=== PATIENT | male | born 1980 | race Caucasian/White ===

== ENCOUNTER 2018-06-12 11:43 | Emergency (ER) | payer MEDICARE, MEDICAID ==
[~2018-06-12] VITALS: Ht 175.3 cm; Wt 70.6 kg
[~2018-06-12 11:43] MED LIST: AMIT10TA; BACL-19 PO; BACL20TA; DEXT10TA7; DIAZ10TA PO; GABA300C; HALO5AMP3; HYDR-3307 PO; PROP80CA3 PO; THIO100T; THORAZINE; TOPI100T24; propanolol PO
[2018-06-12 11:49] VITALS: BP 129/81
== END 2018-06-12 13:09 | disposition home or self-care (01) ==
LOC: ED 12:21
DX: M79.651 Pain in right thigh (principal); M79.652 Pain in left thigh; G89.29 Other chronic pain; I10 Essential (primary) hypertension
CPT/HCPCS: 99281

== ENCOUNTER 2018-06-24 04:28 | Emergency (ER) | payer MEDICARE, MEDICAID ==
[~2018-06-24] VITALS: Ht 177.8 cm; Wt 66.0 kg
--- NOTE | 2018-06-24 04:39 | NUR ---
leyla. report from [facility]. pt c/o abd pain with n/v for 5 days. pt was seen at [facility] 2 times for the same reasons. pt states no improvement. pt's aox4. resps even and unlabored. bp/spo2 monitors in place. call light within reach.
--- NOTE | 2018-06-24 04:58 | NUR ---
pt amb to br and back to room with steady gait. ua sent.
--- NOTE | 2018-06-24 04:58 | NUR ---
pt in xray now.
[2018-06-24 05:29] LABS: MICROSCOPIC NOT IND
[2018-06-24 05:29] LABS: BASOPHILS # (AUTO) 0.07 x10^3/uL (0-0.1); BASOPHILS % (AUTO) 1 % (0-1); EOSINOPHILS % (AUTO) 2 % (1-7); LYMPHOCYTES % (AUTO) 27 % (22-44); MD NO; MEAN CORPUSCULAR HGB CONC 33.5 g/dL (33.2-36.2); MEAN CORPUSCULAR VOLUME 95.5 fL (81-97); MEAN PLATELET VOLUME 8.7 fL (7.4-10.4); MONOCYTES # (AUTO) 0.92 x10^3/uL (0.2-0.8); MONOCYTES % (AUTO) 8 % (2-9); NEUTROPHILS # (AUTO) 7.55 x10^3/uL (1.8-6.8); NEUTROPHILS % (AUTO) 63 % (42-75); PLATELET COUNT 329 x10^3/uL (130-400); RED BLOOD COUNT 5.47 x10^6/uL (4.38-5.82); RED CELL DISTRIBUTION WIDTH 13.9 % (9.4-14.8)
[2018-06-24 05:30] LABS: CHLORIDE 106 mmol/L (98-107)
[2018-06-24 05:31] LABS: CULTURE INDICATED? NO
[2018-06-24 05:37] LABS: ALANINE AMINOTRANSFERASE 57 U/L (12-78); ALBUMIN 4.6 g/dL (3.4-5.0); ALKALINE PHOSPHATASE 78 U/L (45-117); ANION GAP 5 mmol/L (5-15); BILIRUBIN,TOTAL 0.4 mg/dL (0.2-1.0); CALCIUM 9.4 mg/dL (8.5-10.1); CREATININE 1.19 mg/dL (0.7-1.3)
[2018-06-24] MEDS ORDERED: MAALOX/HYOSCYAMINE/LIDOCAINE 45 ML BTL ONE (05:54)
--- NOTE | 2018-06-24 05:58 | NUR ---
PT MEDICATED PER [facility]. PT TOLERATED WELL. PT'S AOX4. RESPS EVEN AND UNLABORED.
[2018-06-24] MEDS ORDERED: MAALOX/HYOSCYAMINE/LIDOCAINE 45 ML BTL PO ONE (06:00)
[2018-06-24 06:39] VITALS: BP 114/76
--- NOTE | 2018-06-24 06:40 | NUR ---
PT GIVEN DC INSTRUCTIONS AND SCRIPT. PT EDUCATED REGARDING DC MEDICATIONS. PT'S AOX4. RESPS EVEN AND UNLABORED. PT AMB TO DC WITH STEADY GAIT. NO ACUTE DISTRESS AT DC.
== END 2018-06-24 06:41 | disposition home or self-care (01) ==
LOC: ED 05:18
DX: R10.33 Periumbilical pain (principal); R10.12 Left upper quadrant pain; R10.32 Left lower quadrant pain; I10 Essential (primary) hypertension
CPT/HCPCS: 36415; 74021; 80053; 81003; 83690; 85025; 99284

== ENCOUNTER 2018-07-20 00:29 | Emergency (ER) | payer MEDICARE, MEDICAID ==
[~2018-07-20] VITALS: Ht 177.8 cm; Wt 70.0 kg
[2018-07-20] MEDS ORDERED: METO-93 PO (00:41)
[2018-07-20] MEDS ORDERED: QUET400T7 PO (00:41)
[2018-07-20] MEDS ORDERED: OLAN2.5T3 PO (00:41)
[2018-07-20] MEDS ORDERED: AMIT50TA PO (00:41)
[2018-07-20] MEDS ORDERED: TRAZ-137 PO (00:41)
--- NOTE | 2018-07-20 00:56 | NUR ---
BIB [facility] D/T HIGH HR UP TO 130'S PER PT'S CALL TO [facility] BUT [facility] ARRIVAL HR WAS 92 PT C/O DIZZINESS WHEN HR WAS UP HIGH PER PT'S REPORT TO [facility] GIVEN 250CC OF NS BOLUS FSBS WAS NORMAL BP 121/78 HX OF ABLATION D/T FAST HEART RATE SOME KIND OF PSYCHIC ON SEROQUEL FOR SLEEP pt's speech is slight slurred d/t pt stated " i took seroquel 300mg trazodone amitriptin tonight for sleep" vss stable dr woodward at bedside eval light off per pt's request cardiac monitoring
--- NOTE | 2018-07-20 00:59 | NUR ---
Pt report from annabelle rodriguez. This rn to assume care of pt. Awaiting lab results. No immediate needs from pt at this time.
[2018-07-20 01:29] LABS: BASOPHILS # (AUTO) 0.03 x10^3/uL (0-0.1); BASOPHILS % (AUTO) 0 % (0-1); EOSINOPHILS % (AUTO) 1 % (1-7); LYMPHOCYTES # (AUTO) 2.44 x10^3/uL (1-3.4); LYMPHOCYTES % (AUTO) 27 % (22-44); MD NO; MEAN CORPUSCULAR HEMOGLOBIN 32.1 pg (27.5-34.5); MEAN CORPUSCULAR HGB CONC 33.4 g/dL (33.2-36.2); MEAN CORPUSCULAR VOLUME 96.2 fL (81-97); MEAN PLATELET VOLUME 8.9 fL (7.4-10.4); MONOCYTES % (AUTO) 6 % (2-9); NEUTROPHILS # (AUTO) 6.03 x10^3/uL (1.8-6.8); NEUTROPHILS % (AUTO) 66 % (42-75); PLATELET COUNT 220 x10^3/uL (130-400); RED BLOOD COUNT 4.93 x10^6/uL (4.38-5.82); RED CELL DISTRIBUTION WIDTH 13.4 % (9.4-14.8)
[2018-07-20 01:36] LABS: ALANINE AMINOTRANSFERASE 73 U/L (12-78); ALBUMIN 3.6 g/dL (3.4-5.0); ANION GAP 7 mmol/L (5-15); CALCIUM 8.5 mg/dL (8.5-10.1); CHLORIDE 104 mmol/L (98-107); CREATININE 1.25 mg/dL (0.7-1.3)
[2018-07-20 01:41] LABS: ALKALINE PHOSPHATASE 82 U/L (45-117); T4 (THYROXINE) 8.3 mcg/dL (4.5-12.1); TOTAL PROTEIN 6.6 g/dL (6.4-8.2); TROPONIN I < 0.015 ng/mL (0.000-0.045)
[2018-07-20 01:44] LABS: BILIRUBIN,TOTAL < 0.1 mg/dL (0.2-1.0)
[2018-07-20 01:45] VITALS: BP 110/70
--- NOTE | 2018-07-20 01:45 | NUR ---
No immediate needs from pt. Awaiting results.
[2018-07-20 01:46] LABS: THYROID STIMULATING HORMONE 0.489 mIU/L (0.358-3.740)
[2018-07-20] MEDS ORDERED: POTASSIUM CHLORIDE 20 MEQ TAB.ER.PRT ONE (01:56)
[2018-07-20] MEDS ORDERED: POTASSIUM CHLORIDE 20 MEQ TAB.ER.PRT PO ONE (02:00)
== END 2018-07-20 02:16 | disposition home or self-care (01) ==
LOC: ED 00:51
DX: R00.2 Palpitations (principal); E87.6 Hypokalemia; I10 Essential (primary) hypertension
CPT/HCPCS: 36415; 71046; 80053; 83880; 84436; 84443; 84484; 85025; 93005; 99284

== ENCOUNTER 2018-07-28 08:11 | Emergency (ER) | payer MEDICARE, MEDICAID ==
[~2018-07-28] VITALS: Ht 177.8 cm; Wt 67.0 kg
[~2018-07-28 08:11] MED LIST changes: +AMIT50TA PO; +METO-93 PO; +OLAN2.5T3 PO; +QUET400T7 PO; +TRAZ-137 PO
--- NOTE | 2018-07-28 08:27 | NUR ---
CALLED FOR TRIAGE, NO ANSWER
--- NOTE | 2018-07-28 08:33 | NUR ---
CALLED FOR TRIAGE, NO ANSWER
[2018-07-28] MEDS ORDERED: MAGNESIUM CITRATE 300ML ORAL SOL PO ONE (09:00)
--- NOTE | 2018-07-28 09:09 | NUR ---
PT SLEEPING ON [facility], ARROUSES TO VERBAL STIM. PT OOB INDEPENDENTLY AND INSTRUCTED TO REMOVE GOWN AND PLACE IT ON WITH THE OPENING IN THE BACK. PT DID THIS W/O DIFFICULTY. RTD TO [facility]. 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 POC DISCUSSED WITH DR. BUTLER. PT TO RADIOLOGY VIA [facility] WITH TECH TRANSPORT
--- NOTE | 2018-07-28 09:18 | NUR ---
PT RTD FROM RADIOLOGY, NO DISTRESS NOTED, DENIES ABD PAIN VERBALIZES, "I'M JUST PRETTY HUNGRY, DO YOU THINK I COULD GET SOMETHING TO EAT" DIET TRAY ORDERED BUT WILL WAIT FOR RADIOLOGY RESULTS BEFORE GIVING TO PT. CALL LIGHT W/I REACH, PT VERBALIZES UNDERSTANDING TO USE CALL LIGHT TO CALL FOR ASSISSTANCE.
[2018-07-28 09:48] LABS: BASOPHILS # (AUTO) 0.05 x10^3/uL (0-0.1); BASOPHILS % (AUTO) 1 % (0-1); EOSINOPHILS # (AUTO) 0.16 x10^3/uL (0-0.4); EOSINOPHILS % (AUTO) 2 % (1-7); LYMPHOCYTES # (AUTO) 2.04 x10^3/uL (1-3.4); LYMPHOCYTES % (AUTO) 25 % (22-44); MD NO; MEAN CORPUSCULAR HEMOGLOBIN 32.2 pg (27.5-34.5); MEAN CORPUSCULAR HGB CONC 33.3 g/dL (33.2-36.2); MEAN CORPUSCULAR VOLUME 96.6 fL (81-97); MEAN PLATELET VOLUME 8.3 fL (7.4-10.4); MONOCYTES # (AUTO) 0.63 x10^3/uL (0.2-0.8); MONOCYTES % (AUTO) 8 % (2-9); NEUTROPHILS # (AUTO) 5.23 x10^3/uL (1.8-6.8); NEUTROPHILS % (AUTO) 64 % (42-75); PLATELET COUNT 200 x10^3/uL (130-400); RED CELL DISTRIBUTION WIDTH 13.8 % (9.4-14.8)
[2018-07-28 10:00] LABS: ALANINE AMINOTRANSFERASE 44 U/L (12-78); ALBUMIN 3.6 g/dL (3.4-5.0); ANION GAP 4 mmol/L (5-15); CALCIUM 8.2 mg/dL (8.5-10.1); CHLORIDE 111 mmol/L (98-107); CREATININE 1.43 mg/dL (0.7-1.3)
[2018-07-28 10:02] LABS: ALKALINE PHOSPHATASE 63 U/L (45-117); BILIRUBIN,TOTAL 0.5 mg/dL (0.2-1.0); TOTAL PROTEIN 6.4 g/dL (6.4-8.2)
--- NOTE | 2018-07-28 10:08 | NUR ---
ALL TESTS RESULTED. PT PROVIDED MEAL TRAY, PT ATE 100% AND IS NOW SLEEPING, NAD NOTED, RESP EVEN NON-LABORED. CHART UP FOR RECHECK
[2018-07-28] MEDS ORDERED: MAGNESIUM CITRATE 300ML ORAL SOL ONE (10:41)
[2018-07-28 10:52] VITALS: BP 108/78
--- NOTE | 2018-07-28 10:53 | NUR ---
Patient/Caregiver given discharge instructions and they have confirmed that they understand the instructions. Patient ambulatory with steady gait. PT GIVEN A CLEAN SHIRT, AND SNACKS TO GO.
== END 2018-07-28 10:54 | disposition home or self-care (01) ==
LOC: ED 10:14
DX: R10.84 Generalized abdominal pain (principal); I10 Essential (primary) hypertension; F90.9 Attention-deficit hyperactivity disorder, unspecified type
CPT/HCPCS: 36415; 74021; 80053; 83690; 85025; 99284

== ENCOUNTER 2018-09-20 22:07 | Emergency (ER) | payer MEDICARE, MEDICAID ==
[~2018-09-20] VITALS: Ht 177.8 cm; Wt 63.0 kg
[~2018-09-20 22:07] MED LIST changes: -HYDR-3307 PO; +HYDR-36 PO
--- NOTE | 2018-09-20 22:16 | NUR ---
PT BIB [facility] WITH C/O PAIN IN HIS CHEST. PT ATTACHED TO ALL MONITORS. PT TACHY. UNABLE TO TELL ME PAST MEDICAL HX. PT WITH PRESSURED SPEECH.
--- NOTE | 2018-09-20 22:28 | NUR ---
ER PA lydia in to assess pt
[2018-09-20 22:54] LABS: BASOPHILS # (AUTO) 0.05 x10^3/uL (0-0.1); BASOPHILS % (AUTO) 0 % (0-1); EOSINOPHILS # (AUTO) 0.05 x10^3/uL (0-0.4); EOSINOPHILS % (AUTO) 1 % (1-7); LYMPHOCYTES # (AUTO) 3.15 x10^3/uL (1-3.4); LYMPHOCYTES % (AUTO) 28 % (22-44); MD NO; MEAN CORPUSCULAR HEMOGLOBIN 32.6 pg (27.5-34.5); MEAN CORPUSCULAR HGB CONC 33.6 g/dL (33.2-36.2); MEAN CORPUSCULAR VOLUME 96.9 fL (81-97); MEAN PLATELET VOLUME 8.7 fL (7.4-10.4); MONOCYTES # (AUTO) 0.65 x10^3/uL (0.2-0.8); MONOCYTES % (AUTO) 6 % (2-9); NEUTROPHILS # (AUTO) 7.28 x10^3/uL (1.8-6.8); NEUTROPHILS % (AUTO) 65 % (42-75); PLATELET COUNT 240 x10^3/uL (130-400); RED BLOOD COUNT 5.28 x10^6/uL (4.38-5.82); RED CELL DISTRIBUTION WIDTH 14.4 % (9.4-14.8)
[2018-09-20 23:03] LABS: ALBUMIN 4.4 g/dL (3.4-5.0); ANION GAP 7 mmol/L (5-15); CALCIUM 9.1 mg/dL (8.5-10.1); CHLORIDE 108 mmol/L (98-107); CREATININE 1.14 mg/dL (0.7-1.3)
[2018-09-20 23:07] LABS: TROPONIN I < 0.015 ng/mL (0.000-0.045)
[2018-09-20 23:18] LABS: AMPHETAMINE SCREEN, URINE Negative (Negative); BARBITURATE SCREEN, URINE Negative (Negative); BENZODIAZEPINE SCREEN, URINE Negative (Negative); CANNABINOID SCREEN, URINE Positive (Negative); COCAINE SCREEN, URINE Negative (Negative); METHADONE SCREEN, URINE Negative (Negative); OPIATE SCREEN, URINE Negative (Negative)
[2018-09-20 23:49] VITALS: BP 135/91
--- NOTE | 2018-09-20 23:50 | NUR ---
pt resting on gurney watching tv. no acute distress noted.
== END 2018-09-21 00:11 | disposition home or self-care (01) ==
LOC: ED 23:37
DX: R07.2 Precordial pain (principal); F90.9 Attention-deficit hyperactivity disorder, unspecified type; I10 Essential (primary) hypertension; F98.8 Other specified behavioral and emotional disorders with onset usually occurring in childhood and adolescence; G89.29 Other chronic pain; R51 Headache
CPT/HCPCS: 36415; 71045; 80048; 80307; 82040; 84443; 84484; 85025; 93005; 99284

== ENCOUNTER 2019-01-05 09:57 | Inpatient (IN) | payer MEDICARE, MEDICAID ==
[~2019-01-05] VITALS: Ht 177.8 cm; Wt 66.1 kg
[2019-01-05] MEDS ORDERED: PANTOPRAZOLE 80 MG in SODIUM CHLORIDE 0.9% 50 ML IVPB ONE (10:43)
[2019-01-05] MEDS ORDERED: PANTOPRAZOLE 80 MG in SODIUM CHLORIDE 0.9% 100 ML IV SCH (10:43)
[2019-01-05] MEDS ORDERED: SODIUM CHLORIDE 0.9% 1,000 ML IV ONE (10:43)
[2019-01-05] MEDS ORDERED: SODIUM CHLORIDE FLUSH 10ML SYR IVF ONE (11:00)
[2019-01-05] MEDS ORDERED: MORPHINE SULFATE 4 MG/ML, 1ML ONE ×2 (11:03→11:35)
[2019-01-05] MEDS: MORPHINE SULFATE 4 MG/ML, 1ML IVPush PRN ×2 (11:16→11:39)
[2019-01-05 11:36] LABS: BASOPHILS # (AUTO) 0.02 x10^3/uL (0-0.1); BASOPHILS % (AUTO) 0 % (0-1); EOSINOPHILS # (AUTO) 0.01 x10^3/uL (0-0.4); EOSINOPHILS % (AUTO) 0 % (1-7); LYMPHOCYTES # (AUTO) 1.77 x10^3/uL (1-3.4); LYMPHOCYTES % (AUTO) 30 % (22-44); MD NO; MEAN CORPUSCULAR HEMOGLOBIN 31.6 pg (27.5-34.5); MEAN CORPUSCULAR HGB CONC 33.1 g/dL (33.2-36.2); MEAN CORPUSCULAR VOLUME 95.4 fL (81-97); MEAN PLATELET VOLUME 8.6 fL (7.4-10.4); MONOCYTES # (AUTO) 0.55 x10^3/uL (0.2-0.8); MONOCYTES % (AUTO) 9 % (2-9); NEUTROPHILS % (AUTO) 60 % (42-75); PLATELET COUNT 249 x10^3/uL (130-400); RED CELL DISTRIBUTION WIDTH 14.1 % (9.4-14.8)
[2019-01-05 11:42] LABS: ALANINE AMINOTRANSFERASE 39 U/L (12-78); ALBUMIN 3.6 g/dL (3.4-5.0); ANION GAP 5 mmol/L (5-15); CALCIUM 8.1 mg/dL (8.5-10.1); CHLORIDE 101 mmol/L (98-107); CREATININE 1.05 mg/dL (0.7-1.3)
[2019-01-05 11:45] LABS: ALKALINE PHOSPHATASE 55 U/L (45-117); BILIRUBIN,TOTAL 0.4 mg/dL (0.2-1.0); INTERNATIONAL NORMALIZED RATIO 0.99 (0.93-1.1); PROTHROMBIN TIME 10.4 Seconds (9.6-11.5); TOTAL PROTEIN 6.5 g/dL (6.4-8.2)
--- NOTE | 2019-01-05 12:26 | NUR ---
REPORT CALLED TO KRISTINE JONES RN. PT RESTING IN BED, IV INFUSING WITHOUT ISSUE. DENIES ANY NEEDS OR CONCERNS AT THIS TIME. AWAITING TRANSPORT.
[2019-01-05 14:00] VITALS: BP 118/75
[2019-01-05] MEDS ORDERED: METO25TA91 PO (14:00)
[2019-01-05] MEDS ORDERED: GABA300C10 PO (14:00)
[2019-01-05] MEDS ORDERED: ONDANSETRON 2MG/ML, 2ML IVPush PRN (14:30)
[2019-01-05] MEDS ORDERED: DOCUSATE 100 MG CAPSULE PO PRN (14:30)
[2019-01-05] MEDS ORDERED: LABETALOL 5MG/ML, 20ML IVPush PRN (14:30)
[2019-01-05] MEDS ORDERED: ACETAMINOPHEN 325 MG TABLET PO PRN (14:30)
[2019-01-05] MEDS ORDERED: ENALAPRILAT 1.25 MG/ML, 2ML IVPush PRN (14:30)
[2019-01-05] MEDS ORDERED: POLYETHYLENE GLYCOL 17 GM PACKET PO PRN (14:30)
[2019-01-05] MEDS ORDERED: BISACODYL 10 MG SUPP PR PRN (14:30)
[2019-01-05] MEDS: HYDROmorphone 2 MG/ML, 1ML IVPush PRN ×4 (15:09→23:56)
[2019-01-05] MEDS: PANTOPRAZOLE 80 MG in SODIUM CHLORIDE 0.9% 100 ML IV SCH ×2 (15:16→23:52)
[2019-01-05] MEDS: GABAPENTIN 300 MG CAPSULE PO SCH ×2 (17:27→20:33)
[2019-01-05] MEDS: SODIUM CHLORIDE 0.9% 1,000 ML IV SCH (17:28)
[2019-01-05] MEDS: NICOTINE 21 MG/24 HR PATCH.TD24 TD SCH (17:28)
[2019-01-05 18:51] VITALS: BP 104/66
[2019-01-05] MEDS ORDERED: TRAZODONE 50MG TABLET PO SCH (21:00)
[2019-01-06 01:32] VITALS: BP 106/70
[2019-01-06] MEDS: SODIUM CHLORIDE 0.9% 1,000 ML IV SCH (04:04)
[2019-01-06] MEDS: GABAPENTIN 300 MG CAPSULE PO SCH ×3 (04:04→15:55)
[2019-01-06 05:50] LABS: BASOPHILS # (AUTO) 0.04 x10^3/uL (0-0.1); BASOPHILS % (AUTO) 1 % (0-1); EOSINOPHILS # (AUTO) 0.09 x10^3/uL (0-0.4); EOSINOPHILS % (AUTO) 2 % (1-7); LYMPHOCYTES % (AUTO) 50 % (22-44); MD NO; MEAN CORPUSCULAR HGB CONC 32.5 g/dL (33.2-36.2); MEAN CORPUSCULAR VOLUME 98.4 fL (81-97); MEAN PLATELET VOLUME 8.8 fL (7.4-10.4); MONOCYTES # (AUTO) 0.47 x10^3/uL (0.2-0.8); MONOCYTES % (AUTO) 8 % (2-9); NEUTROPHILS # (AUTO) 2.35 x10^3/uL (1.8-6.8); NEUTROPHILS % (AUTO) 40 % (42-75); PLATELET COUNT 194 x10^3/uL (130-400); RED BLOOD COUNT 2.96 x10^6/uL (4.38-5.82); RED CELL DISTRIBUTION WIDTH 14.1 % (9.4-14.8)
[2019-01-06 06:10] LABS: ALANINE AMINOTRANSFERASE 28 U/L (12-78); ALBUMIN 2.8 g/dL (3.4-5.0); ALKALINE PHOSPHATASE 38 U/L (45-117); BILIRUBIN,TOTAL 0.4 mg/dL (0.2-1.0); CALCIUM 7.3 mg/dL (8.5-10.1); CREATININE 0.81 mg/dL (0.7-1.3)
[2019-01-06 06:18] LABS: ANION GAP 4 mmol/L (5-15); CHLORIDE 109 mmol/L (98-107)
[2019-01-06 07:00] VITALS: BP 97/57
[2019-01-06] MEDS ORDERED: METOPROLOL SUCCINATE 50 MG TAB.ER.24H PO SCH (09:00)
[2019-01-06] MEDS: NICOTINE 21 MG/24 HR PATCH.TD24 TD SCH (09:51)
[2019-01-06] MEDS: PANTOPRAZOLE 80 MG in SODIUM CHLORIDE 0.9% 100 ML IV SCH (11:09)
[2019-01-06] MEDS: HYDROmorphone 2 MG/ML, 1ML IVPush PRN (11:09)
[2019-01-06] MEDS ORDERED: PROPOFOL 10 MG/ML, 20ML ONE (12:01)
[2019-01-06] MEDS ORDERED: PROPOFOL 10 MG/ML, 50ML ONE (12:01)
[2019-01-06] MEDS ORDERED: FENTANYL PF 100 MCG/2ML IV PRN (12:30)
[2019-01-06] MEDS ORDERED: ONDANSETRON 2MG/ML, 2ML IV PRN (12:30)
[2019-01-06] MEDS ORDERED: ONDANSETRON ODT 8 MG PO PRN (12:30)
[2019-01-06] MEDS ORDERED: DIPHENHYDRAMINE 50 MG/ML, 1ML IVPush PRN (12:30)
[2019-01-06] MEDS ORDERED: MIDAZOLAM 1 MG/ML, 2ML IV PRN (12:30)
[2019-01-06] MEDS ORDERED: EPHEDRINE 50 MG/ML, 1ML IM PRN (12:30)
[2019-01-06] MEDS ORDERED: DIAZEPAM 5 MG/ML, 2ML IVPush PRN (12:30)
[2019-01-06] MEDS ORDERED: EPHEDRINE 50 MG/ML, 1ML IVPush PRN (12:30)
[2019-01-06] MEDS ORDERED: OMEP-110 PO (13:02)
[2019-01-06] MEDS ORDERED: ACET325T26 PO (13:02)
[2019-01-06 13:05] VITALS: BP 102/67
[2019-01-06] MEDS ORDERED: OMEPRAZOLE 20 MG CAPSULE.DR PO SCH (16:00)
== END 2019-01-06 18:30 | disposition home or self-care (01) | DRG 378 ==
LOC: ED 11:18 → 3N 12:02 → SUATTDRO 12:18
PROVIDERS: ADMIT Internal Medicine; ATTEND Internal Medicine
PROC: 0DB68ZX Excision of Stomach, Via Natural or Artificial Opening Endoscopic, Diagnostic (ICD-10-PCS; principal; 2019-01-06 12:00)
DX: K26.4 Chronic or unspecified duodenal ulcer with hemorrhage (principal); D62 Acute posthemorrhagic anemia; E87.1 Hypo-osmolality and hyponatremia; F25.9 Schizoaffective disorder, unspecified; I10 Essential (primary) hypertension; F32.9 Major depressive disorder, single episode, unspecified; F90.9 Attention-deficit hyperactivity disorder, unspecified type; G43.909 Migraine, unspecified, not intractable, without status migrainosus; G89.29 Other chronic pain; G47.00 Insomnia, unspecified; F12.90 Cannabis use, unspecified, uncomplicated; F98.8 Other specified behavioral and emotional disorders with onset usually occurring in childhood and adolescence; Z87.891 Personal history of nicotine dependence; Z79.899 Other long term (current) drug therapy
CPT/HCPCS: 36415; 80053; 82140; 83735; 84100; 85014; 85018; 85025; 85610; 86850; 86900; 88305; 96374; G0378; J1170; J2704; C9113; J2270; J7030

== ENCOUNTER 2019-01-07 16:28 | Emergency (ER) | payer MEDICARE, MEDICAID ==
[~2019-01-07] VITALS: Ht 177.8 cm; Wt 66.0 kg
[~2019-01-07 16:28] MED LIST changes: +ACET325T26 PO; +GABA300C10 PO; +METO25TA91 PO; +OMEP-110 PO
--- NOTE | 2019-01-07 16:51 | NUR ---
Pt to [facility] from [facility]
--- NOTE | 2019-01-07 17:04 | NUR ---
PT UPRIGHT ON GURNEY AWAKE & CALM, RESPONDS APPROP TO STAFF, NAD, COMFORT MEASURES PROVIDED, CALL LIGHT WITHI REACH.
[2019-01-07] MEDS ORDERED: PANTOPRAZOLE 80 MG in SODIUM CHLORIDE 0.9% 50 ML IVPB ONE (17:16)
[2019-01-07] MEDS ORDERED: ONDANSETRON 2MG/ML, 2ML ONE (17:24)
[2019-01-07] MEDS ORDERED: MORPHINE SULFATE 4 MG/ML, 1ML ONE ×2 (17:24→18:31)
[2019-01-07] MEDS ORDERED: ONDANSETRON 2MG/ML, 2ML IVPush ONE (17:30)
[2019-01-07] MEDS ORDERED: SODIUM CHLORIDE FLUSH 10ML SYR IVF ONE (17:30)
[2019-01-07] MEDS ORDERED: SODIUM CHLORIDE 0.9% 1,000ML IVBOLUS ONE (17:30)
[2019-01-07 17:39] LABS: INTERNATIONAL NORMALIZED RATIO 0.96 (0.93-1.1); PROTHROMBIN TIME 10.1 Seconds (9.6-11.5)
[2019-01-07 17:42] LABS: ALANINE AMINOTRANSFERASE 34 U/L (12-78); ALBUMIN 3.6 g/dL (3.4-5.0); ANION GAP 4 mmol/L (5-15); CALCIUM 8.3 mg/dL (8.5-10.1); CHLORIDE 105 mmol/L (98-107); CREATININE 0.97 mg/dL (0.7-1.3)
[2019-01-07] MEDS: MORPHINE SULFATE 4 MG/ML, 1ML IVPush PRN ×2 (17:44→18:34)
[2019-01-07 17:45] LABS: ALKALINE PHOSPHATASE 57 U/L (45-117); BILIRUBIN,TOTAL 0.2 mg/dL (0.2-1.0); TOTAL PROTEIN 6.6 g/dL (6.4-8.2)
[2019-01-07 17:47] LABS: BASOPHILS # (AUTO) 0.03 x10^3/uL (0-0.1); BASOPHILS % (AUTO) 1 % (0-1); EOSINOPHILS # (AUTO) 0.04 x10^3/uL (0-0.4); EOSINOPHILS % (AUTO) 1 % (1-7); LYMPHOCYTES # (AUTO) 1.41 x10^3/uL (1-3.4); LYMPHOCYTES % (AUTO) 23 % (22-44); MD NO; MEAN CORPUSCULAR HEMOGLOBIN 31.8 pg (27.5-34.5); MEAN CORPUSCULAR HGB CONC 33.1 g/dL (33.2-36.2); MEAN CORPUSCULAR VOLUME 96.3 fL (81-97); MEAN PLATELET VOLUME 8.1 fL (7.4-10.4); MONOCYTES # (AUTO) 0.39 x10^3/uL (0.2-0.8); MONOCYTES % (AUTO) 6 % (2-9); NEUTROPHILS # (AUTO) 4.32 x10^3/uL (1.8-6.8); NEUTROPHILS % (AUTO) 70 % (42-75); PLATELET COUNT 250 x10^3/uL (130-400); RED CELL DISTRIBUTION WIDTH 13.7 % (9.4-14.8)
[2019-01-07] MEDS ORDERED: PANTOPRAZOLE 80 MG in SODIUM CHLORIDE 0.9% 100 ML IV SCH (18:00)
--- NOTE | 2019-01-07 18:01 | NUR ---
PT REMAINS UPRIGHT ON GURNEY AWAKE & MORE COMFORTABLE, RESPONDS APPROP TO STAFF, NAD, COMFORT MEASURES PROVIDED, CALL LIGHT WITHI REACH.
--- NOTE | 2019-01-07 18:06 | NUR ---
PT TO CT
--- NOTE | 2019-01-07 18:20 | NUR ---
PT RETURNED FROM CT
--- NOTE | 2019-01-07 18:43 | NUR ---
REPORT GIVEN TO MICAELA
[2019-01-07] MEDS ORDERED: OMNIPAQUE 350 MG/ML, 100ML BOTTLE ONE (18:45)
[2019-01-07] MEDS ORDERED: MAGNESIUM CITRATE 300ML ORAL SOL ONE (19:25)
[2019-01-07] MEDS ORDERED: MAGNESIUM CITRATE 300ML ORAL SOL PO ONE (19:30)
[2019-01-07 19:32] VITALS: BP 133/80
== END 2019-01-07 19:47 | disposition home or self-care (01) ==
LOC: ED 17:57
DX: K26.7 Chronic duodenal ulcer without hemorrhage or perforation (principal); K59.00 Constipation, unspecified; R51 Headache; I10 Essential (primary) hypertension; F90.9 Attention-deficit hyperactivity disorder, unspecified type
CPT/HCPCS: 36415; 74174; 80053; 83690; 85025; 85610; 96365; 96366; 96375; 99284; C9113; J2270; J2405; J7030; Q9967

== ENCOUNTER 2020-03-27 19:14 | Emergency (ER) | payer MEDICARE, MEDICAID ==
[~2020-03-27] VITALS: Ht 175.3 cm; Wt 70.2 kg
[~2020-03-27 19:14] MED LIST changes: +HYDR-3248 PO; -HYDR-36 PO; -TRAZ-137 PO; +TRAZ-175 PO
--- NOTE | 2020-03-27 20:09 | NUR ---
Pt walks in NAD to room 29, requested pt change to gown.
--- NOTE | 2020-03-27 20:39 | NUR ---
RECEIVED REPORT FROM XIOMY ELIZONDO. PT RESTING ON [place]. NADN. VSS. TANNER AVILA AT BEDSIDE FOR EVAL.
[2020-03-27] MEDS ORDERED: DIAZEPAM 5 MG TABLET ONE (20:48)
--- NOTE | 2020-03-27 20:56 | NUR ---
REPORT GIVEN TO XIOMY CASTRO.
[2020-03-27] MEDS ORDERED: DIAZEPAM 5 MG TABLET PO ONE (21:00)
[2020-03-27 21:25] VITALS: BP 134/76
== END 2020-03-27 21:33 | disposition home or self-care (01) ==
LOC: ED 21:10
DX: R51.9 Headache, unspecified (principal); G89.29 Other chronic pain; I10 Essential (primary) hypertension; M79.10 Myalgia, unspecified site
CPT/HCPCS: 99283

== ENCOUNTER 2020-10-19 01:01 | Emergency (ER) | payer MEDICARE, MEDICAID ==
[~2020-10-19] VITALS: Ht 175.3 cm; Wt 64.0 kg
--- NOTE | 2020-10-19 01:36 | NUR ---
PT C/O OF RIGHT LEG CRAMPS AND RIGHT FOOT CRAMPS PT STATES HE HAS HOLES IN HIS BRAIN FROM DR. CLEMENTS HIS PCP. PT STATES HE WANTS TO BE GIVEN DILANTIN. PT APPEARS ANXIOUS. SPEAKING FAST. ATTACHED TO MONITORS. VSS WITH HR 107 BED IN POSITION, LAISHA ENGAGED, CALL LIGHT ON LAP. TM
[2020-10-19 02:11] LABS: BASOPHILS % (AUTO) 1 % (0-1); EOSINOPHILS % (AUTO) 3 % (1-7); LYMPHOCYTES % (AUTO) 21 % (22-44); MEAN CORPUSCULAR HEMOGLOBIN 31.4 pg (27.5-34.5); MEAN CORPUSCULAR HGB CONC 34.2 g/dL (33.2-36.2); MEAN PLATELET VOLUME 7.7 fL (7.4-10.4); MONOCYTES % (AUTO) 8 % (2-9); NEUTROPHILS % (AUTO) 67 % (42-75); PLATELET COUNT 313 x10^3/uL (130-400); RED BLOOD COUNT 5.08 x10^6/uL (4.38-5.82); RED CELL DISTRIBUTION WIDTH 14.2 % (9.4-14.8)
[2020-10-19 02:22] LABS: ALANINE AMINOTRANSFERASE 32 U/L (12-78); ALBUMIN 3.7 g/dL (3.4-5.0); ANION GAP 8 mmol/L (5-15); CALCIUM 9.3 mg/dL (8.5-10.1); CHLORIDE 103 mmol/L (98-107); CREATININE 0.75 mg/dL (0.7-1.3)
[2020-10-19 02:24] LABS: ALKALINE PHOSPHATASE 86 U/L (45-117); BILIRUBIN,TOTAL 0.8 mg/dL (0.2-1.0); TOTAL PROTEIN 7.7 g/dL (6.4-8.2)
[2020-10-19] MEDS ORDERED: IBUPROFEN 800 MG TABLET PO ONE (03:00)
[2020-10-19] MEDS ORDERED: IBUPROFEN 800 MG TABLET ONE (03:08)
[2020-10-19] MEDS ORDERED: hydrOXyzine 50MG TABLET ONE (03:08)
[2020-10-19 04:02] VITALS: BP 116/76
--- NOTE | 2020-10-19 04:03 | NUR ---
Patient/Caregiver given discharge instructions and they have confirmed that they understand the instructions. Patient ambulatory with steady gait. NAD, all questions answered appropriately, denies additional needs at this time. No personal belongings left in room after discharge.
== END 2020-10-19 04:04 | disposition home or self-care (01) ==
LOC: ED 02:01
DX: M79.661 Pain in right lower leg (principal); M79.662 Pain in left lower leg; F23 Brief psychotic disorder; F60.0 Paranoid personality disorder; I10 Essential (primary) hypertension; F17.200 Nicotine dependence, unspecified, uncomplicated; F90.9 Attention-deficit hyperactivity disorder, unspecified type
CPT/HCPCS: 36415; 80053; 80320; 85025; 99283; Q0177; G0480

== ENCOUNTER 2020-10-30 03:57 | Emergency (ER) | payer MEDICARE, MEDICAID ==
[~2020-10-30] VITALS: Ht 172.7 cm; Wt 63.7 kg
--- NOTE | 2020-10-30 05:39 | NUR ---
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
--- NOTE | 2020-10-30 05:49 | NUR ---
PT REPORTS COMING INTO ED FOR PAIN, FULL BODY CRAMPING, "ITS MY NERVES AND MY TENDONS AND MY MUSCLES. ALL OVER, I JUST HURT". PT DENIES TRAUMA OR HISTORY OF SAME. NAD, BED IN LOWEST, RAILS ENGAGED, CALL LIGHT ON LAP, WCTM.
--- NOTE | 2020-10-30 06:34 | NUR ---
Patient is resting comfortably in bed. Bed in lowest, rails engaged, call light on lap. NAD, NO CHANGE IN CONDITION, WCTM.
[2020-10-30] MEDS ORDERED: SODIUM CHLORIDE 0.9% 1,000ML IVBOLUS ONE (07:00)
[2020-10-30] MEDS ORDERED: SODIUM CHLORIDE FLUSH 10ML SYR IVF ONE (07:00)
[2020-10-30] MEDS ORDERED: CEFTRIAXONE 1,000 MG IM ONE (07:00)
[2020-10-30] MEDS ORDERED: LORazepam 2 MG/ML, 1ML IVPush ONE (07:00)
--- NOTE | 2020-10-30 07:15 | NUR ---
REPORT TO ANNE STAUFFER
[2020-10-30] MEDS ORDERED: LORazepam 2 MG/ML, 1ML ONE (07:25)
[2020-10-30 07:28] LABS: ALBUMIN 3.5 g/dL (3.4-5.0); ANION GAP 9 mmol/L (5-15); CALCIUM 8.5 mg/dL (8.5-10.1); CHLORIDE 93 mmol/L (98-107); CREATININE 1.38 mg/dL (0.7-1.3)
[2020-10-30] MEDS ORDERED: POTASSIUM CHLORIDE 20 MEQ TAB.ER.PRT PO ONE (08:00)
[2020-10-30] MEDS ORDERED: POTASSIUM CHLORIDE 20 MEQ TAB.ER.PRT ONE (08:13)
[2020-10-30 09:30] VITALS: BP 113/67
== END 2020-10-30 09:32 | disposition home or self-care (01) ==
LOC: ED 05:35
DX: U07.1 COVID-19 (principal); M62.838 Other muscle spasm; E87.6 Hypokalemia; I10 Essential (primary) hypertension; Z87.11 Personal history of peptic ulcer disease
CPT/HCPCS: 36415; 80048; 82040; 96361; 96374; 99283; J2060; J7030; U0003; U0005

== ENCOUNTER 2020-11-10 20:17 | Emergency (ER) | payer MEDICARE, MEDICAID ==
[~2020-11-10] VITALS: Ht 177.8 cm; Wt 64.3 kg
[2020-11-10 20:40] VITALS: BP 128/84
== END 2020-11-10 21:06 | disposition home or self-care (01) ==
LOC: ED 20:47
DX: K02.9 Dental caries, unspecified (principal)
CPT/HCPCS: 99283